=== PATIENT | female | born 1985 | race Two or more races ===

== ENCOUNTER 2018-11-11 08:39 | Emergency (ER) | payer MEDICAID ==
[~2018-11-11] VITALS: Ht 152.4 cm; Wt 48.1 kg
--- NOTE | 2018-11-11 09:04 | NUR ---
AT BEDSIDE FOR EVAL.
--- NOTE | 2018-11-11 09:05 | NUR ---
PT IS C/O Headache, 12/15 vice-like, with photosensitivity since yesterday, PT IS AAOX4, NOT IN RESPIRATORY DISTRESS, HOOKED TO MONITOR, KEPT RESTED AND COMFORTABLE, WILL CONTINUE TO MONITOR.
[2018-11-11] MEDS ORDERED: SUMATRIPTAN SUCCINATE 6 MG/0.5 ML VIAL SQ ONE ×2 (09:11→09:30)
[2018-11-11] MEDS ORDERED: METOCLOPRAMIDE HCL 10 MG/2 ML VIAL ONE (09:12)
--- NOTE | 2018-11-11 09:15 | NUR ---
PT SIGNED PRENANCY WAIVER.
--- NOTE | 2018-11-11 09:20 | NUR ---
PT IS WHEELED TO CT SCAN.
[2018-11-11] MEDS ORDERED: IV NS 0.9% 1,000 ML BAG IV ONE (09:30)
[2018-11-11] MEDS ORDERED: METOCLOPRAMIDE HCL 10 MG/2 ML VIAL IV ONE (09:30)
--- NOTE | 2018-11-11 10:51 | NUR ---
IV removed. Catheter intact and site benign. Pressure and 4x4 applied to site. No bleeding noted. Patient discharged to home in stable condition. Written and verbal after care instructions given. Patient verbalizes understanding of instruction.
[2018-11-11 10:52] VITALS: BP 121/88
== END 2018-11-11 10:54 | disposition home or self-care (01) ==
LOC: ER 08:39
DX: R51 Headache (principal); R42 Dizziness and giddiness
CPT/HCPCS: 70450; 96361; 96372; 96374; 99284; A4216; J2765; J3030; J7030

== ENCOUNTER 2021-08-11 22:23 | Emergency (ER) | payer MEDICAID ==
[~2021-08-11] VITALS: Ht 142.2 cm; Wt 45.4 kg
--- NOTE | 2021-08-12 01:06 | NUR ---
Patient discharged to home in stable condition. Written and verbal after care instructions given. Patient verbalizes understanding of instruction.
[2021-08-12 01:07] VITALS: BP 120/66
== END 2021-08-12 01:07 | disposition home or self-care (01) ==
LOC: ER 22:23
DX: R20.2 Paresthesia of skin (principal)
CPT/HCPCS: 72125-TC